=== PATIENT | female | born 1970 | race Caucasian/White ===

== ENCOUNTER 2016-10-17 02:06 | Observation (INO) | payer MEDICAID, OTHER ==
[~2016-10-17] VITALS: Ht 152.4 cm; Wt 76.1 kg
[2016-10-17] VITALS (13 sets, daily range): BP systolic 98–145; BP diastolic 52–94; PULSE 46–96; RESP 16–20; TEMP 96.7–97.5; O2SAT 95–100
[~2016-10-17 02:06] MED LIST: METH750T2 PO; MOBI15TA PO
--- NOTE | 2016-10-17 02:28 | PD ---
HPI Chief Complaint: chest pain Time Seen by Provider: 02:21 Travel History International Travel<30 days: No Contact w/Intl Traveler<30days: No Traveled to known affect area: No History of Present Illness HPI The patient is a 46-year-old female with no known history of heart disease that complains of a pain below her breasts on the ribs at about 8:30 PM yesterday. The pain is as if somebody punched her in this area. It is sharp. The pain is constant and she states she is associated the pain with sweating, shortness of breath but no nausea. She says the pain radiates to her back. She denies any family history of heart disease at an early age among her family members. She denies any history of cholesterol, diabetes, hypertension but does smoke one fourth pack a day. She denies any syncopal or near syncopal spells. She has never had a stress test. PFSH Past Medical History Cancer: No Diabetes: No Diminished Hearing: No Hepatitis: No Hiatal Hernia: No Migraines: Yes Thyroid Disease: No : 7 Para: 5 Miscarriage: 2 Dilation and Curettage (D&C): Yes Tubal Ligation: Yes Past Surgical History Gynecologic Surgery: Yes (D&C) Other Surgery: Yes Social History Alcohol Use: No Tobacco Use: Yes (4 TO 5 CIGARETTES DAILY) Substance Use: No Allergies-Medications (Allergen,Severity, Reaction): Coded Allergies: No Known Allergies (Verified , 10/17/16) Reported Meds & Prescriptions Reported Meds & Active Scripts Active Robaxin (Methocarbamol) 750 Mg Tab 750 Mg PO QID Mobic (Meloxicam) 15 Mg Tab 15 Mg PO DAILY Review of Systems Except as stated in HPI: all other systems reviewed are Neg Physical Exam Narrative GENERAL: The patient appears anxious, alert, oriented 3 in no apparent distress other than her anxiety. Her vital signs are normal. SKIN: Warm and dry. HEAD: Atraumatic. Normocephalic. EYES: Pupils equal and round. No scleral icterus. No injection or drainage. ENT: No nasal bleeding or discharge. Mucous membranes pink and moist. NECK: Trachea midline. No JVD. CARDIOVASCULAR: Regular rate and rhythm. No murmur appreciated. I can completely reproduce the patient's chest pain by pressing on the lower anterior ribs where the patient perceives her pain. RESPIRATORY: No accessory muscle use. Clear to auscultation. Breath sounds equal bilaterally. GASTROINTESTINAL: Abdomen soft, non-tender, nondistended. Hepatic and splenic margins not palpable. MUSCULOSKELETAL: No obvious deformities. No clubbing. No cyanosis. No edema. NEUROLOGICAL: Awake and alert. No obvious cranial nerve deficits. Motor grossly within normal limits. Normal speech. PSYCHIATRIC: The patient is extremely anxious; insight and judgment normal. Data Data Last Documented VS Vital Signs Date Time Temp Pulse Resp B/P Pulse Ox O2 Delivery O2 Flow Rate FiO2 10/17/16 02:55 79 20 98/63 99 Room Air 10/17/16 02:15 97.5 Orders Electrocardiogram (10/17/16 02:21) Complete Blood Count With Diff (10/17/16 02:21) Comprehensive Metabolic Panel (10/17/16 02:21) Magnesium (Mg) (10/17/16 02:21) Troponin I (10/17/16 02:21) Ecg Monitoring (10/17/16 02:21) Bilateral Bp Monitoring (10/17/16 02:21) Iv Access Insert/Monitor (10/17/16 02:21) Oximetry (10/17/16 02:21) Oxygen Administration (10/17/16 02:21) Aspirin (Aspirin) (10/17/16 02:30) Sodium Chloride 0.9% Flush (Ns Flush) (10/17/16 02:30) Nitroglycerin Sl (Nitrostat Sl) (10/17/16 02:30) Chest, Pa & Lat (10/17/16 02:21) Labs Laboratory Tests Test 10/17/16 02:20 White Blood Count 7.8 TH/MM3 Red Blood Count 5.01 MIL/MM3 Hemoglobin 14.3 GM/DL Hematocrit 43.2 % Mean Corpuscular Volume 86.3 FL Mean Corpuscular Hemoglobin 28.5 PG Mean Corpuscular Hemoglobin 33.0 % Concent Red Cell Distribution Width 12.7 % Platelet Count 241 TH/MM3 Mean Platelet Volume 8.9 FL Neutrophils (%) (Auto) 64.4 % Lymphocytes (%) (Auto) 25.4 % Monocytes (%) (Auto) 6.1 % Eosinophils (%) (Auto) 3.3 % Basophils (%) (Auto) 0.8 % Neutrophils # (Auto) 4.9 TH/MM3 Lymphocytes # (Auto) 2.0 TH/MM3 Monocytes # (Auto) 0.5 TH/MM3 Eosinophils # (Auto) 0.3 TH/MM3 Basophils # (Auto) 0.1 TH/MM3 CBC Comment DIFF FINAL Differential Comment Sodium Level 139 MEQ/L Potassium Level 4.5 MEQ/L Chloride Level 107 MEQ/L Carbon Dioxide Level 23.7 MEQ/L Anion Gap 8 MEQ/L Blood Urea Nitrogen 18 MG/DL Creatinine 1.00 MG/DL Estimat Glomerular Filtration 60 ML/MIN Rate Random Glucose 116 MG/DL Calcium Level 10.0 MG/DL Magnesium Level 2.2 MG/DL Total Bilirubin 0.2 MG/DL Aspartate Amino Transf 15 U/L (AST/SGOT) Alanine Aminotransferase 34 U/L (ALT/SGPT) Alkaline Phosphatase 95 U/L Troponin I LESS THAN 0.02 NG/ML Total Protein 7.5 GM/DL Albumin 3.7 GM/DL MDM Medical Decision Making Medical Screen Exam Complete: Yes Emergency Medical Condition: Yes Medical Record Reviewed: Yes Interpretation(s) The EKG is normal with normal sinus rhythm rate of 69. The CBC is normal. The complete metabolic profile shows a GFR of 60 but is otherwise unremarkable. The troponin I is normal. Differential Diagnosis Chest pain etiology undetermined, chest wall pain, atypical chest pain, esophageal pain, gastrointestinal pain, acute coronary syndromeunlikely, pleuritic chest pain Narrative Course The patient likely has chest wall pain. Nevertheless, the limitations of our testing here in the emergency department were explained to the patient and the patient will do stress testing. She has never had a stress test before. Physician Communication Physician Communication I discussed the patient with Dr. Jeffers, the patient will be admitted to the chest pain center here at [place]. Diagnosis Primary Impression: Chest pain of unknown etiology Admitting Information Admitting Physician Requests: Observation Glenn Torres MD Oct 17, 2016 02:28
[2016-10-17] MEDS ORDERED: ASPIRIN 325 MG TAB PO ONE (02:30)
[2016-10-17] MEDS ORDERED: SODIUM CHLORIDE 0.9% FLUSH 10 ML FLUSH IVF PRN (02:30)
[2016-10-17 02:33] LABS: AUTOMATED NEUTROPHIL # 4.9 TH/MM3 (1.8-7.7); BASOPHIL # 0.1 TH/MM3 (0-0.2); BASOPHIL % 0.8 % (0.0-2.0); EOSINOPHIL # 0.3 TH/MM3 (0-0.4); EOSINOPHIL % 3.3 % (0.0-4.0); HEMATOCRIT 43.2 % (35.0-46.0); HEMO FLAGS DIFF FINAL; LYMPH % 25.4 % (9.0-44.0); MEAN CELL VOLUME 86.3 FL (80.0-100.0); MEAN CORPUSCULAR HEMOGLOBIN 28.5 PG (27.0-34.0); MONO % 6.1 % (0.0-8.0); NEUT % 64.4 % (16.0-70.0); PLATELET COUNT 241 TH/MM3 (150-450); RED BLOOD COUNT 5.01 MIL/MM3 (4.00-5.30); RED CELL DISTRIBUTION WIDTH 12.7 % (11.6-17.2); WHITE BLOOD COUNT 7.8 TH/MM3 (4.0-11.0)
[2016-10-17] MEDS: NITROGLYCERIN 0.4 MG SL 25 TABS/BTL SL SCH ×4 (02:35→03:00)
[2016-10-17 02:39] LABS: CHLORIDE 107 MEQ/L (98-107); POTASSIUM 4.5 MEQ/L (3.5-5.1); SODIUM (NA) 139 MEQ/L (136-145)
[2016-10-17 02:43] LABS: ANION GAP 8 MEQ/L (5-15); BICARBONATE 23.7 MEQ/L (21.0-32.0); BLOOD UREA NITROGEN 18 MG/DL (7-18); MAGNESIUM 2.2 MG/DL (1.5-2.5)
[2016-10-17 02:46] LABS: ALT (GPT) 34 U/L (10-53); AST (GOT) 15 U/L (15-37); GLOMERULAR FILTRATION RATE 60 ML/MIN (>89)
[2016-10-17 02:48] LABS: TOTAL BILIRUBIN ADULT 0.2 MG/DL (0.2-1.0)
[2016-10-17 02:49] LABS: ALKALINE PHOSPHATASE 95 U/L (45-117)
--- NOTE | 2016-10-17 03:08 | RADHPO ---
EXAM DATE/TIME: 10/17/2016 02:37 [facility] COMPARISON: No previous studies available for comparison. INDICATIONS : Chest pain irradiating into back. MEDICAL HISTORY : None. SURGICAL HISTORY : None. ENCOUNTER: Initial ACUITY: 1 day PAIN SCORE: 8/10 LOCATION: Bilateral chest FINDINGS: PA and lateral views of the chest demonstrate the lungs to be symmetrically aerated without evidence of mass, infiltrate or effusion. The cardiomediastinal contours are unremarkable. Osseous structure s are intact. CONCLUSION: No acute disease. Mark Coronado Jr., MD on October 17, 2016 at 3:06 Board Certified Radiologist. This report was verified electronically.
[2016-10-17] MEDS ORDERED: MORPHINE SULFATE 4 MG/ML INJ IV PRN (04:00)
[2016-10-17] MEDS ORDERED: NITROGLYCERIN 0.4 MG SL 25 TABS/BTL SL PRN (04:00)
[2016-10-17] MEDS ORDERED: ACETAMINOPHEN/HYDROcodone 325 MG/7.5 MG TAB PO PRN (04:00)
[2016-10-17] MEDS ORDERED: SODIUM CHLORIDE 0.9% FLUSH 10 ML FLUSH IV FLUSH PRN ×2 (04:00)
[2016-10-17] MEDS ORDERED: ACETAMINOPHEN 500 MG CPLT PO PRN (04:00)
[2016-10-17 04:08] LABS: BETA HCG QUANT 1 MIU/ML (0-5)
[2016-10-17 06:42] LABS: CREATINE KINASE 80 U/L (26-192)
--- NOTE | 2016-10-17 07:55 | HHI.HP ---
[facility] No Primary Care Physician Admission Diagnosis chest pain etiology undetermined Diagnoses: (1) Atypical chest pain Diagnosis: Principal Chief Complaint: chest pain Travel History International Travel<30 Days: No Contact w/Intl Traveler <30 Da: No Traveled to Known Affected Are: No History of Present Illness 46 year-old female with history of migraines is admitted to chest pain center. Patient states she started experience pain indicating just left of the sternum wrapping underneath the rib cage bilaterally and radiating to the back with onset at 8-9 PM last night. She states initially it was discomfort but then became significant pain stating it was an 8-10/10 but is now only 1-2/10. She does admit to having diaphoresis and shortness of breath at the time. She states the pain was pleuritic last night but that pleuritic sensation has now resolved. She states she couldn't sit, stand, or lay down in any way because of the pain. She thought the pain was indigestion or gas and took Tums without relief. She denies any fevers or chills, cough, night sweats otherwise. Denies any nausea, vomiting, diarrhea, constipation, dysuria. She denies any history of heart disease, hypertension, hyperlipidemia, or diabetes. She denies any history of blood clots. Denies hemoptysis, lower extremity edema, or recent sedentary travel, and does not take any medications. Review of Systems Except as stated in HPI: all other systems reviewed are Neg Past Family Social History Past Medical History Migraines Pinched nerve in the back Torn ligaments in the knee M2 Past Surgical History Tubal ligation D&C Reported Medications No medications Allergies: Coded Allergies: No Known Allergies (Verified , 10/17/16) Family History Patient denies any family history of heart disease. Social History Patient smokes a few cigarettes daily. Admits to occasional alcohol use. Denies any history of illicit drug use including IVDA. Physical Exam Vital Signs Vital Signs Date Time Temp Pulse Resp B/P Pulse Ox O2 Delivery O2 Flow Rate FiO2 10/17/16 05:03 54 10/17/16 05:00 96.9 57 20 121/58 98 10/17/16 04:53 96 21 10/17/16 04:00 48 18 111/55 96 Room Air 10/17/16 03:15 46 18 118/61 100 Room Air 10/17/16 02:55 79 20 98/63 99 Room Air 10/17/16 02:50 64 20 115/62 98 Room Air 10/17/16 02:40 61 20 123/52 97 Room Air 10/17/16 02:33 56 20 114/56 100 Room Air 10/17/16 02:30 20 100 Room Air 10/17/16 02:25 57 20 113/75 100 Room Air 132/94 10/17/16 02:15 100 Room Air 10/17/16 02:15 97.5 96 20 145/73 100 10/17/16 02:15 100 Room Air Physical Exam GENERAL: This is a well-nourished, well-developed patient, in no apparent distress. SKIN: No rashes, ecchymoses or lesions. Warm and dry. HEAD: Atraumatic. Normocephalic. EYES: Pupils equal round and reactive. No scleral icterus. No injection or drainage. ENT: Throat without erythema, tonsillar hypertrophy or exudate. Uvula midline. Airway patent. NECK: Trachea midline. CHEST: Mildly tender to palpation left and right of the sternum and over the ribs underlying the breasts. CARDIOVASCULAR: Regular rate and rhythm without murmurs, gallops, or rubs. RESPIRATORY: Clear to auscultation. Breath sounds equal bilaterally. No wheezes , rales, or rhonchi. GASTROINTESTINAL: Abdomen soft, non-tender, nondistended. No guarding. MUSCULOSKELETAL: No lower extremity edema bilaterally. NEUROLOGICAL: Awake and alert. Motor grossly within normal limits. Normal speech. Laboratory Laboratory Tests Test 10/17/16 10/17/16 02:20 05:40 White Blood Count 7.8 Red Blood Count 5.01 Hemoglobin 14.3 Hematocrit 43.2 Mean Corpuscular Volume 86.3 Mean Corpuscular Hemoglobin 28.5 Mean Corpuscular Hemoglobin 33.0 Concent Red Cell Distribution Width 12.7 Platelet Count 241 Mean Platelet Volume 8.9 Neutrophils (%) (Auto) 64.4 Lymphocytes (%) (Auto) 25.4 Monocytes (%) (Auto) 6.1 Eosinophils (%) (Auto) 3.3 Basophils (%) (Auto) 0.8 Neutrophils # (Auto) 4.9 Lymphocytes # (Auto) 2.0 Monocytes # (Auto) 0.5 Eosinophils # (Auto) 0.3 Basophils # (Auto) 0.1 CBC Comment DIFF FINAL Differential Comment Sodium Level 139 Potassium Level 4.5 Chloride Level 107 Carbon Dioxide Level 23.7 Anion Gap 8 Blood Urea Nitrogen 18 Creatinine 1.00 Estimat Glomerular Filtration 60 Rate Random Glucose 116 Calcium Level 10.0 Magnesium Level 2.2 Total Bilirubin 0.2 Aspartate Amino Transf 15 (AST/SGOT) Alanine Aminotransferase 34 (ALT/SGPT) Alkaline Phosphatase 95 Troponin I LESS THAN 0.02 LESS THAN 0.02 Total Protein 7.5 Albumin 3.7 Human Chorionic Gonadotropin, 1 Quant Total Creatine Kinase 80 Result Diagram: 10/17/1621910/17/16219 Imaging Last Impressions Chest X-Ray 10/17/16220 Signed Impressions: Service Date/Time: Monday, October 17, 2016 02:37 - CONCLUSION: No acute disease. Mark Coronado Jr., MD Assessment and Plan Assessment and Plan 46 her old female with: Atypical chest pain: Onset last night pleuritic in nature also feeling like indigestion. Patient has some reproducible tenderness on exam but states it is not like it was last night. She received 325 mg of aspirin at 0230 and 2 doses of SL Nitro. Troponin 2 less than 0.02. EKG personally interpreted with normal sinus rhythm and no evidence of ischemia. PERC score of zero, making PE unlikely. -Serial EKG and enzyme -Nitro/[place]/morphine prn pain -Telemetry -Provided ACS ruled out patient will undergo nuclear stress test as she has issues with her back and knee making it unsafe to use the treadmill. Patient denies being very active. GI prophylaxis: Pepcid DVT prevention: SCDs Written by Toshia Alberts PA-C acting as scribe for Dr. Allen on 10/17/16 at 0745. All or portions of this note were transcribed by scribe Toshia Alberts PA-C. I , Dr. Marc Allen personally performed the history, physical exam, and medical decision making; and confirmed the accuracy of the information in the transcribed note. Authenticated by Dr. Marc Allen on 10/17/16 at 09:01. Discussed Condition With patient Toshia Alberts Oct 17, 2016 07:55 Marc Allen MD Oct 17, 2016 09:01
[2016-10-17] MEDS ORDERED: FAMOTIDINE 20 MG TAB PO SCH (09:00)
[2016-10-17] MEDS ORDERED: SODIUM CHLORIDE 0.9% FLUSH 10 ML FLUSH IV FLUSH SCH ×2 (09:00)
[2016-10-17 10:25] LABS: CREATINE KINASE 75 U/L (26-192)
[2016-10-17] MEDS ORDERED: REGADENOSON INJ 0.4 MG/5 ML SYR IV ONE (14:23)
--- NOTE | 2016-10-17 15:42 | RADHPO ---
EXAM DATE/TIME: 10/17/2016 14:31 [facility] COMPARISON: No previous studies available for comparison. INDICATIONS : Left sided chest pain radiating to the back with shortness of breath and diaphoresis for one day. Desiree ble to walk on treadmill. DOSE: 26.2 mCi Tc99m Myoview at stress. 8.7 mCi Tc99m Myoview at rest. 0.4 mg Lexiscan STRESS SYMPTOMS: Dizziness. EJECTION FRACTION: 67% MEDICAL HISTORY : Migraines. SURGICAL HISTORY : Tubal ligation. ENCOUNTER: Initial ACUITY: 1 day PAIN SCALE: 8/10 LOCATION: Left chest TECHNIQUE: The patient underwent pharmacologic stress with infusion of prescribed dose. Continuous ECG tracing was monitored during stress. Gated SPECT imaging was performed after stress and conventional SPECT i maging was performed at rest. The examination was performed on a SPECT/CT scanner, both attenuation and non-corrected datasets were reviewed. FINDINGS: DISTRIBUTION: The maximum perfused segment at stress is in the lateral wall. PERFUSION STUDY: The pattern of perfusion at stress is within normal limits. GATED STUDY: There is intact wall motion and thickening without hypokinetic or dyskinetic segments. CONCLUSION: 1. No significant reversibility to suggest ischemia. 2. Normal wall motion with ejection fraction 67%. RISK CATEGORY: Low (<1% Annual Mortality Rate) Kavon Nash MD on October 17, 2016 at 15:39 Board Certified Radiologist. This report was verified electronically.
--- NOTE | 2016-10-17 15:48 | HHI.DCPOC ---
Discharge Care Plan Diagnosis: (1) Atypical chest pain Your Health Problems Are: Chest Pain Goals to Promote Your Health * To prevent worsening of your condition and complications * To maintain your health at the optimal level Directions to Meet Your Goals Take your medications as prescribed Follow your dietary instruction Follow activity as directed Keep your appointments as scheduled Take your immunizations and boosters as scheduled If your symptoms worsen call your PCP, if no PCP go to Urgent Care Center or Emergency Room Smoking is Dangerous to Your Health. Avoid second hand smoke Call the 24-hour hour crisis hotline for domestic abuse at Toshia Alberts Oct 17, 2016 15:48
--- NOTE | 2016-10-17 16:08 | TR ---
Date Performed: 10/17/2016 Time Performed: 14:34:14 DOCTOR: Boo Zambrano DRUG LIST: CLINICAL HISTORY: ANGINA CONTRAINDICATION TO ETT REASON FOR TEST: Angina REASON FOR ENDING: OBSERVATION: CONCLUSION: Lexiscan stress test was performed under standard four minute protocol. Radionuclid e was injected one minute prior to ending the test. No electrocardiographic abormalities were present to suggest ischemia. Nuclear imaging and interpretation are pending. COMMENTS:
--- NOTE | 2016-10-18 14:51 | EKG ---
Date Performed: 10/17/2016 Time Performed: 02:12:46 PTAGE: 46 years EKG: Sinus rhythm . Normal ECG NO PREVIOUS TRACING DOCTOR: Miller Terry Interpretating Date/Time 10/18/2016 14:47:40
--- NOTE | 2016-10-18 15:27 | EKG ---
Date Performed: 10/17/2016 Time Performed: 09:22:32 PTAGE: 46 years EKG: Possible ectopic atrial bradycardia The ectopic atrial focus is new from the prior tracing Borderline ECG NO PREVIOUS TRACING DOCTOR: Miller Terry Interpretating Date/Time 10/18/2016 15:25:49
== END 2016-10-17 18:10 | disposition home or self-care (01) ==
LOC: PHED 02:06 → PHEDA 03:33 → PH3A 04:50
PROVIDERS: ADMIT Family Medicine; ATTEND Family Medicine
DX: R07.89 Other chest pain (principal); F17.210 Nicotine dependence, cigarettes, uncomplicated
CPT/HCPCS: 71020; 78452; 80053; 82550; 83735; 84484; 84702; 85025; 93005; 93017; A9502; G0378; J2785

== ENCOUNTER 2017-11-13 10:33 | Emergency (ER) | payer MEDICAID ==
[~2017-11-13] VITALS: Ht 152.4 cm; Wt 73.0 kg
[2017-11-13 10:35] VITALS: BP 132/58; PULSE 75; RESP 16; TEMP 97.9; O2SAT 98
--- NOTE | 2017-11-13 11:25 | PD ---
HPI Chief Complaint: Musculoskeletal Complaint Time Seen by Provider: 10:47 Travel History International Travel<30 days: No Contact w/Intl Traveler<30days: No Traveled to known affect area: No History of Present Illness HPI This is a 47-year-old female here with right low back pain that radiates into the buttocks and right leg 2 weeks. While at work today the pain became severe prompting her visit. Denies injury or trauma. She denies fever, chills , incontinence, paresthesia or weakness of the extremities. Symptom severity is moderate. Aggravated by movement and slightly relieved with rest. She describes the pain as sharp, intermittent, radiates into the buttocks and leg. [facility] Past Medical History Medical History: Denies Significant Hx Cancer: No Cardiovascular Problems: No Diabetes: No Diminished Hearing: No Hepatitis: No Hiatal Hernia: No Respiratory: No Migraines: Yes Thyroid Disease: No Influenza Vaccination: No ?: Not : 7 Para: 5 Miscarriage: 2 Dilation and Curettage (D&C): Yes Tubal Ligation: Yes Past Surgical History Gynecologic Surgery: Yes (D&C) Other Surgery: Yes Social History Alcohol Use: Yes (Occasional ) Tobacco Use: Yes (3 to 4 cigs per day) Substance Use: No Allergies-Medications (Allergen,Severity, Reaction): Coded Allergies: No Known Allergies (Verified , 10/17/16) Reported Meds & Prescriptions Reported Meds & Active Scripts Active No Active Prescriptions or Reported Medications Review of Systems Except as stated in HPI: all other systems reviewed are Neg General / Constitutional: No: Fever Eyes: No: Visual changes HENT: No: Headaches Cardiovascular: No: Chest Pain or Discomfort Respiratory: No: Shortness of Breath Gastrointestinal: No: Abdominal Pain Genitourinary: No: Dysuria Physical Exam Narrative GENERAL: Alert and well-appearing 47-year-old female SKIN: Warm and dry. HEAD: Normocephalic. EYES: No scleral icterus. No injection or drainage. NECK: Supple, trachea midline. No JVD or lymphadenopathy. CARDIOVASCULAR: Regular rate and rhythm without murmurs, gallops, or rubs. RESPIRATORY: Breath sounds equal bilaterally. No accessory muscle use. GASTROINTESTINAL: Abdomen soft, non-tender, nondistended. MUSCULOSKELETAL: No cyanosis, or edema. Normal strength and sensation in the lower extremities. 2+ DTRs. Ambulating with steady gait BACK: No midline spine tenderness.+TTP right sacroiliac joint, right gluteal. No CVA tenderness. Data Data Last Documented VS Vital Signs Date Time Temp Pulse Resp B/P (MAP) Pulse Ox O2 Delivery O2 Flow Rate FiO2 11/13/17 10:35 97.9 75 16 132/58 (82) 98 MDM Medical Decision Making Medical Screen Exam Complete: Yes Emergency Medical Condition: Yes Differential Diagnosis Sciatica, SI joint pain, lumbar strain Narrative Course 47-year-old female here with sciatic pain. She has a normal neurologic exam. She will be treated with NSAIDs, muscle relaxers, Ultram. Instructed to follow- up with her doctor. Diagnosis Primary Impression: Sciatica Qualified Codes: M54.31 - Sciatica, right side Referrals: Primary Care Physician Additional Instructions: Medication as directed. Follow-up with your primary doctor. Scripts Tramadol (Ultram) 50 Mg Tab 50 MG PO Q6H Y for PAIN, #12 TAB 0 Refills Prov: Airam Oropeza 11/13/17 Methocarbamol (Robaxin) 750 Mg Tab 750 MG PO QID for Muscle Spasm, #12 TAB 0 Refills Prov: Airam Oropeza 11/13/17 Ibuprofen (Ibuprofen) 800 Mg Tab 800 MG PO Q6HR Y for PAIN, #40 TAB 0 Refills Prov: Airam Oropeza 11/13/17 Disposition: 01 DISCHARGE HOME Condition: Stable Airam Oropeza Nov 13, 2017 11:25
[2017-11-13] MEDS ORDERED: IBUP1TAB7 PO (11:30)
[2017-11-13] MEDS ORDERED: ROBA750T PO (11:30)
[2017-11-13] MEDS ORDERED: traMADol HCL 50 MG TAB PO ONE (11:30)
[2017-11-13] MEDS ORDERED: TRAM50 PO (11:30)
== END 2017-11-13 12:10 | disposition home or self-care (01) ==
LOC: PHEFT 10:33
DX: M54.41 Lumbago with sciatica, right side (principal); F17.210 Nicotine dependence, cigarettes, uncomplicated
CPT/HCPCS: 99283